=== PATIENT | female | born 1965 | race Caucasian/White ===

== ENCOUNTER 2017-11-18 21:58 | Emergency (ER) | payer MEDICARE, MEDICAID ==
[~2017-11-18] VITALS: Ht 162.6 cm; Wt 95.1 kg
[~2017-11-18 21:58] MED LIST: ATOR40TA PO; DOCU100C33 PO; ESOM40CA PO; LAMO1TAB2 PO; LISI-167 PO; LURA40TA PO; METO25TA35 PO; PENT100C2 PO
[2017-11-18 22:00] VITALS: BP 117/78
[2017-11-18] MEDS ORDERED: BENZONATATE 100 MG CAPSULE ONE (22:47)
[2017-11-18] MEDS ORDERED: BENZONATATE 100 MG CAPSULE PO ONE (23:00)
== END 2017-11-18 23:39 | disposition home or self-care (01) ==
LOC: ED 23:30
DX: J15.7 Pneumonia due to Mycoplasma pneumoniae (principal); F17.210 Nicotine dependence, cigarettes, uncomplicated; I10 Essential (primary) hypertension; E78.5 Hyperlipidemia, unspecified
CPT/HCPCS: 71046; 93005; 99284; 99406; J7512

== ENCOUNTER 2018-05-09 23:17 | Inpatient (IN) | payer MEDICARE, MEDICAID ==
[~2018-05-09] VITALS: Ht 162.6 cm; Wt 96.2 kg
[2018-05-09] MEDS ORDERED: ALBUTEROL/IPRATROPIUM 2.5MG/0.5MG, 3 ML NPPB ONE (23:30)
[2018-05-09] MEDS ORDERED: ALBUTEROL/IPRATROPIUM 2.5MG/0.5MG, 3 ML ONE (23:40)
[2018-05-10] MEDS ORDERED: HYDROcodone/APAP 5/325 TABLET PO ONE (00:30)
[2018-05-10] MEDS ORDERED: HYDROcodone/APAP 5/325 TABLET ONE (00:30)
[2018-05-10] MEDS ORDERED: KETOROLAC 30 MG/1 ML ONE (00:30)
[2018-05-10] MEDS ORDERED: KETOROLAC 30 MG/1 ML IM ONE (00:30)
[2018-05-10] MEDS ORDERED: morphine SULFATE 10 MG/ML, 1ML IVPush ONE (01:00)
[2018-05-10] MEDS ORDERED: AZITHROMYCIN 500 MG in SODIUM CHLORIDE 0.9% 250 ML IV ONE (01:00)
[2018-05-10] MEDS ORDERED: CEFTRIAXONE PMX 1GM/50ML 50 ML IV ONE ×2 (01:00→02:00)
[2018-05-10 01:30] LABS: BASOPHILS # (AUTO) 0.03 x10^3/uL (0-0.1); BASOPHILS % (AUTO) 0 % (0-1); EOSINOPHILS # (AUTO) 0.03 x10^3/uL (0-0.4); EOSINOPHILS % (AUTO) 0 % (1-7); LYMPHOCYTES # (AUTO) 1.68 x10^3/uL (1-3.4); LYMPHOCYTES % (AUTO) 13 % (22-44); MD NO; MEAN CORPUSCULAR HGB CONC 33.2 g/dL (32.4-35.8); MEAN CORPUSCULAR VOLUME 87.4 fL (80-100); MEAN PLATELET VOLUME 8.8 fL (7.4-10.4); MONOCYTES # (AUTO) 1.21 x10^3/uL (0.2-0.8); MONOCYTES % (AUTO) 9 % (2-9); NEUTROPHILS # (AUTO) 10.02 x10^3/uL (1.8-6.8); NEUTROPHILS % (AUTO) 77 % (42-75); PLATELET COUNT 200 x10^3/uL (130-400); RED BLOOD COUNT 4.61 x10^6/uL (3.82-5.3); RED CELL DISTRIBUTION WIDTH 18.1 % (9.6-15.2)
[2018-05-10] MEDS ORDERED: OMNIPAQUE 350 MG/ML, 100ML BOTTLE ONE (01:39)
[2018-05-10 01:42] LABS: ALBUMIN 3.1 g/dL (3.4-5.0); ANION GAP 7 mmol/L (5-15); CALCIUM 8.3 mg/dL (8.5-10.1); CHLORIDE 108 mmol/L (98-107); CREATININE 0.79 mg/dL (0.55-1.02)
[2018-05-10] MEDS ORDERED: ONDANSETRON 2MG/ML, 2ML IVPush PRN (02:00)
[2018-05-10] MEDS ORDERED: BISACODYL 10 MG SUPP PR PRN (02:00)
[2018-05-10] MEDS ORDERED: DOCUSATE 100 MG CAPSULE PO PRN (02:00)
[2018-05-10] MEDS ORDERED: GABAPENTIN 300 MG CAPSULE PO PRN (02:00)
[2018-05-10] MEDS: PENTOSAN POLYSULFATE SODIUM 200 MG HOMEMEDPO SCH ×2 (02:00→21:00)
[2018-05-10] MEDS ORDERED: POLYETHYLENE GLYCOL 17 GM PACKET PO PRN (02:00)
[2018-05-10] MEDS ORDERED: LABETALOL 5MG/ML, 20ML IVPush PRN (02:00)
[2018-05-10] MEDS ORDERED: morphine SULFATE 10 MG/ML, 1ML IVPush PRN (02:00)
[2018-05-10] MEDS ORDERED: PROMETHAZINE 25 MG/ML, 1ML IM PRN (02:00)
[2018-05-10] MEDS ORDERED: ONDANSETRON ODT 4 MG PO PRN (02:00)
[2018-05-10] MEDS ORDERED: ACETAMINOPHEN 325 MG TABLET PO PRN (02:00)
[2018-05-10] MEDS ORDERED: hydrALAzine 20 MG/ML, 1ML IVPush PRN (02:00)
[2018-05-10 02:38] LABS: INTERNATIONAL NORMALIZED RATIO 1.02 (0.93-1.1); PROTHROMBIN TIME 10.8 Seconds (9.6-11.5)
[2018-05-10 02:39] LABS: THYROID STIMULATING HORMONE 0.363 mIU/L (0.358-3.740)
[2018-05-10] MEDS: SODIUM CHLORIDE 0.9% 1,000 ML IV SCH ×2 (02:51→12:04)
[2018-05-10] MEDS: ALBUTEROL SULFATE 2.5 MG/3 ML NPPB SCH ×4 (03:00→20:38)
[2018-05-10] MEDS ORDERED: BUDESONIDE 0.5 MG/2 ML INHA NPPB SCH (03:00)
[2018-05-10] MEDS: DOCUSATE 100 MG CAPSULE PO SCH ×2 (03:25→21:07)
[2018-05-10] MEDS: METOPROLOL TARTRATE 25 MG TABLET PO SCH ×2 (03:25→21:00)
[2018-05-10] MEDS: LAMOTRIGINE 200 MG TABLET PO SCH ×2 (03:25→21:08)
[2018-05-10] MEDS: ATORVASTATIN 40 MG TABLET PO SCH ×2 (03:26→21:07)
[2018-05-10] MEDS: NICOTINE 14MG/24 HR PATCH.TD24 TD SCH (03:27)
[2018-05-10] MEDS: LURASIDONE 20 MG TABLET PO SCH ×2 (03:27→21:07)
[2018-05-10] MEDS: LISINOPRIL 10 MG TABLET PO SCH ×2 (03:41→21:00)
[2018-05-10] MEDS: HEPARIN 5,000 UNITS/ML, 1ML SQ SCH ×3 (03:41→18:24)
[2018-05-10] MEDS: PANTOPROZOLE 40MG TABLET PO SCH ×2 (04:37→21:08)
[2018-05-10] MEDS: OXYcodone IR 5MG TABLET PO PRN ×3 (04:54→10:26)
[2018-05-10 06:31] LABS: MICROSCOPIC INDICATED
[2018-05-10 06:58] LABS: CULTURE INDICATED? NO
[2018-05-10 08:00] VITALS: BP 108/67
[2018-05-10 08:03] LABS: RAPID INFLUENZA A Negative (Negative); RAPID INFLUENZA B Negative (Negative)
[2018-05-10] MEDS: BUDESONIDE 0.5 MG/2 ML INHA NPPB SCH ×2 (08:25→20:38)
[2018-05-10] MEDS ORDERED: FLUTICASONE/VILANTEROL 200-25MCG/INH INH SCH (09:00)
[2018-05-10 12:34] VITALS: BP 105/68
[2018-05-10] MEDS ORDERED: HYDROcodone/APAP 10/325 MG TABLET ONE (14:59)
[2018-05-10] MEDS: HYDROcodone/APAP 10/325 MG TABLET PO PRN ×2 (15:03→21:08)
[2018-05-10 20:41] VITALS: BP 102/61
[2018-05-11] MEDS: HEPARIN 5,000 UNITS/ML, 1ML SQ SCH ×3 (01:35→17:13)
[2018-05-11] MEDS: CEFTRIAXONE PMX 2GM/50ML 50 ML IV SCH (01:35)
[2018-05-11] MEDS: NICOTINE 14MG/24 HR PATCH.TD24 TD SCH (01:35)
[2018-05-11] MEDS: AZITHROMYCIN 500 MG in SODIUM CHLORIDE 0.9% 250 ML IV SCH (02:33)
[2018-05-11 02:41] VITALS: BP 119/72
[2018-05-11] MEDS: ALBUTEROL SULFATE 2.5 MG/3 ML NPPB SCH ×3 (02:44→19:21)
[2018-05-11] MEDS: HYDROcodone/APAP 10/325 MG TABLET PO PRN ×3 (04:11→21:00)
[2018-05-11 05:03] LABS: BASOPHILS # (AUTO) 0.07 x10^3/uL (0-0.1); BASOPHILS % (AUTO) 1 % (0-1); EOSINOPHILS # (AUTO) 0.05 x10^3/uL (0-0.4); EOSINOPHILS % (AUTO) 1 % (1-7); LYMPHOCYTES % (AUTO) 21 % (22-44); MD NO; MEAN CORPUSCULAR HGB CONC 33.2 g/dL (32.4-35.8); MEAN CORPUSCULAR VOLUME 87.6 fL (80-100); MEAN PLATELET VOLUME 9.3 fL (7.4-10.4); MONOCYTES # (AUTO) 0.64 x10^3/uL (0.2-0.8); MONOCYTES % (AUTO) 7 % (2-9); NEUTROPHILS # (AUTO) 6.21 x10^3/uL (1.8-6.8); NEUTROPHILS % (AUTO) 70 % (42-75); PLATELET COUNT 214 x10^3/uL (130-400); RED CELL DISTRIBUTION WIDTH 17.6 % (9.6-15.2)
[2018-05-11 05:12] LABS: ALBUMIN 2.5 g/dL (3.4-5.0); ANION GAP 9 mmol/L (5-15); CALCIUM 7.8 mg/dL (8.5-10.1); CHLORIDE 110 mmol/L (98-107)
[2018-05-11 05:16] LABS: ALANINE AMINOTRANSFERASE 79 U/L (12-78); ALKALINE PHOSPHATASE 65 U/L (45-117); BILIRUBIN,TOTAL 0.1 mg/dL (0.2-1.0); CHOLESTEROL, TOTAL 134 mg/dL (140-239); CREATININE 0.67 mg/dL (0.55-1.02); HDL CHOL % 34 % (28-40); HDL CHOLESTEROL (DIRECT) 45 mg/dL (40-60); LDL CHOLESTEROL,CALCULATED 68 mg/dL (54-169); LDL/HDL RATIO 1.5 (0.5-3.0); TOTAL PROTEIN 6.2 g/dL (6.4-8.2); TRIGLYCERIDES 105 mg/dL (50-200); VLDL CHOLESTEROL 21 mg/dL (0-25)
[2018-05-11 07:38] VITALS: BP 121/72
[2018-05-11] MEDS: BUDESONIDE 0.5 MG/2 ML INHA NPPB SCH ×2 (08:00→19:22)
[2018-05-11] MEDS ORDERED: POTASSIUM CHLORIDE 20 MEQ TAB.ER.PRT PO ONE (10:00)
[2018-05-11 12:48] VITALS: BP 132/73
[2018-05-11 20:37] VITALS: BP 126/77
[2018-05-11] MEDS: LURASIDONE 20 MG TABLET PO SCH (21:00)
[2018-05-11] MEDS: PENTOSAN POLYSULFATE SODIUM 200 MG HOMEMEDPO SCH (21:00)
[2018-05-11] MEDS: PANTOPROZOLE 40MG TABLET PO SCH (21:01)
[2018-05-11] MEDS: LAMOTRIGINE 200 MG TABLET PO SCH (21:01)
[2018-05-11] MEDS: DOCUSATE 100 MG CAPSULE PO SCH (21:01)
[2018-05-11] MEDS: LISINOPRIL 10 MG TABLET PO SCH (21:01)
[2018-05-11] MEDS: ATORVASTATIN 40 MG TABLET PO SCH (21:01)
[2018-05-11] MEDS: METOPROLOL TARTRATE 25 MG TABLET PO SCH (21:02)
[2018-05-12] MEDS: CEFTRIAXONE PMX 2GM/50ML 50 ML IV SCH (01:31)
[2018-05-12] MEDS: HEPARIN 5,000 UNITS/ML, 1ML SQ SCH ×2 (01:31→09:32)
[2018-05-12] MEDS: NICOTINE 14MG/24 HR PATCH.TD24 TD SCH (01:31)
[2018-05-12] MEDS: AZITHROMYCIN 500 MG in SODIUM CHLORIDE 0.9% 250 ML IV SCH (02:22)
[2018-05-12 02:58] VITALS: BP 115/79
[2018-05-12 07:50] VITALS: BP 123/79
[2018-05-12] MEDS: ALBUTEROL SULFATE 2.5 MG/3 ML NPPB SCH (11:15)
[2018-05-12] MEDS: BUDESONIDE 0.5 MG/2 ML INHA NPPB SCH (11:16)
[2018-05-12] MEDS ORDERED: DOXY100T PO (12:04)
[2018-05-12] MEDS ORDERED: ALBU18HF INH (12:04)
[2018-05-12] MEDS ORDERED: CEFD300C37 PO (12:04)
[2018-05-12 12:53] VITALS: BP 112/61
[2018-05-12] MEDS: HYDROcodone/APAP 10/325 MG TABLET PO PRN (15:11)
== END 2018-05-12 15:25 | disposition home or self-care (01) | DRG 871 ==
LOC: ED 05-10 01:55 → EDIP 05-10 02:00 → 4NOR 05-10 02:10 → DCLOUNGE 05-12 15:20
PROVIDERS: ADMIT Internal Medicine; ATTEND Internal Medicine
DX: A41.9 Sepsis, unspecified organism (principal); J18.9 Pneumonia, unspecified organism; J96.91 Respiratory failure, unspecified with hypoxia; E44.1 Mild protein-calorie malnutrition; J44.0 Chronic obstructive pulmonary disease with (acute) lower respiratory infection; J44.1 Chronic obstructive pulmonary disease with (acute) exacerbation; K21.9 Gastro-esophageal reflux disease without esophagitis; N32.89 Other specified disorders of bladder; F17.210 Nicotine dependence, cigarettes, uncomplicated; E78.5 Hyperlipidemia, unspecified; F31.9 Bipolar disorder, unspecified; F90.9 Attention-deficit hyperactivity disorder, unspecified type; I10 Essential (primary) hypertension; D72.829 Elevated white blood cell count, unspecified; E78.00 Pure hypercholesterolemia, unspecified; Z90.710 Acquired absence of both cervix and uterus; Z87.01 Personal history of pneumonia (recurrent); Z80.3 Family history of malignant neoplasm of breast; Z68.36 Body mass index [BMI] 36.0-36.9, adult
CPT/HCPCS: 36415; 71046; 71275; 80048; 80053; 80061; 81001; 82040; 83036; 83605; 83735; 84145; 84439; 84443; 85025; 85610; 85730; 87040; 87070; 87077; 87186; 87205; 87400; 93005; 93306; 94640; 99291; G0378; J0456; J0696; J1644; J1885; J7613; J7620; J7626; Q9967; J7030; J7050; J7512

== ENCOUNTER 2019-06-25 05:16 | Emergency (ER) | payer MEDICARE, MEDICAID ==
[~2019-06-25] VITALS: Ht 162.6 cm; Wt 89.0 kg
[~2019-06-25 05:16] MED LIST changes: +ALBU18HF INH; +CEFD300C37 PO; +DOXY100T PO
[2019-06-25 06:19] LABS: BASOPHILS # (AUTO) 0.07 x10^3/uL (0-0.1); BASOPHILS % (AUTO) 1 % (0-1); EOSINOPHILS # (AUTO) 0.07 x10^3/uL (0-0.4); EOSINOPHILS % (AUTO) 1 % (1-7); LYMPHOCYTES # (AUTO) 1.78 x10^3/uL (1-3.4); LYMPHOCYTES % (AUTO) 23 % (22-44); MD NO; MEAN CORPUSCULAR HEMOGLOBIN 28.9 pg (27.0-34.8); MEAN CORPUSCULAR HGB CONC 32.8 g/dL (32.4-35.8); MEAN PLATELET VOLUME 8.3 fL (7.4-10.4); MONOCYTES # (AUTO) 0.56 x10^3/uL (0.2-0.8); MONOCYTES % (AUTO) 7 % (2-9); NEUTROPHILS # (AUTO) 5.34 x10^3/uL (1.8-6.8); NEUTROPHILS % (AUTO) 68 % (42-75); PLATELET COUNT 289 x10^3/uL (130-400); RED BLOOD COUNT 4.81 x10^6/uL (3.82-5.3); RED CELL DISTRIBUTION WIDTH 16.4 % (9.6-15.2)
[2019-06-25 06:30] LABS: ALBUMIN 3.6 g/dL (3.4-5.0); ANION GAP 12 mmol/L (5-15); CALCIUM 9.1 mg/dL (8.5-10.1); CHLORIDE 105 mmol/L (98-107)
[2019-06-25 06:35] LABS: ALANINE AMINOTRANSFERASE 152 U/L (12-78); ALKALINE PHOSPHATASE 74 U/L (45-117); BILIRUBIN,TOTAL 0.8 mg/dL (0.2-1.0); CREATININE 0.77 mg/dL (0.55-1.02); TOTAL PROTEIN 7.6 g/dL (6.4-8.2)
[2019-06-25 06:38] LABS: MONOSCREEN Negative (Negative)
[2019-06-25] MEDS ORDERED: DEXAMETHASONE 4 MG/ML, 1ML PO ONE (07:00)
--- NOTE | 2019-06-25 07:00 | NUR ---
RECEIVED REPORT FROM GABRIELA AMADOR AND [facility]
[2019-06-25] MEDS ORDERED: BICILLIN-LA 1,200,000 UNITS/2 ML IM ONE (07:30)
[2019-06-25] MEDS ORDERED: DEXAMETHASONE 4 MG/ML, 1ML ONE (07:32)
[2019-06-25 07:46] VITALS: BP 99/57
--- NOTE | 2019-06-25 07:47 | NUR ---
MEDICATED NOTED ON MAR
== END 2019-06-25 08:30 | disposition home or self-care (01) ==
LOC: ED 06:52
DX: L52 Erythema nodosum (principal); J02.9 Acute pharyngitis, unspecified; R05 Cough; I10 Essential (primary) hypertension; E78.00 Pure hypercholesterolemia, unspecified
CPT/HCPCS: 36415; 80053; 85025; 86308; 87081; 87806; 87880; 96372; 99283; J0561; J1100; G0475